=== PATIENT | female | born 1990 | race African-American/Black ===

== ENCOUNTER 2016-12-22 19:42 | Inpatient (IN) ==
[2016-12-22] MEDS ORDERED: ONDANSETRON 4 MG/2 ML VIAL IV PRN (20:41)
[2016-12-22] MEDS ORDERED: CITRIC ACID/SODIUM CITRATE 30 ML UDCUP PO ONE (20:45)
[2016-12-22] MEDS ORDERED: ceFAZolin 1,000 MG in SYRINGE 1 EACH IV ONE (20:45)
[2016-12-22 21:22] LABS: Basophils % 0.2 % (0.0-0.8); Hematocrit 33.5 VOL% (35.7-47.0); Hemoglobin 11.1 GM/DL (12.0-16.0); Immature Granulocytes % 0.6 %; Immature Granulocytes Absolute 0.03 #; Lymphocytes # 1.1 10*3/uL (1.4-4.0); Lymphocytes % 22.8 % (21.3-54.2); Mean Corpuscular HGB Conc 33.1 GM/DL (32-36); Mean Corpuscular Hemoglobin 26 PG (27-34); Mean Corpuscular Volume 78.8 FL (87-102); Mean Platelet Volume 12.9 FL (9.6-12.0); Monocytes # 0.5 10*3/uL (0.11-0.8); Monocytes % 10.3 % (1.7-12.7); Neutrophils # 3.3 10*3/uL (1.4-7.4); Neutrophils % 66.1 % (38.7-73.9); Platelet Count 155 T/CUMM (130-400); Red Blood Count 4.25 MC/CUMM (3.8-5.5); Red Cell Distribution Width 14.6 % (9.3-17.3)
[2016-12-22 21:36] LABS: INR 0.9; PT Patient Result 9.4 SECS; Partial Thromboplastin Time 27.8 SECS (0-40)
[2016-12-22 21:51] LABS: Albumin 2.3 G/DL (3.4-5.0); Bilirubin,Total 0.4 MG/DL (0.2-1.0); Calcium 8.6 MG/DL (8.5-10.1); Osmolality,Calculated 275.7 MOS/KG (273-304); Potassium 3.8 MMOL/L (3.5-5.1); Total Protein 6.8 G/DL (6.4-8.3); Uric Acid 4.5 MG/DL (2.6-6.0)
[2016-12-22 23:06] LABS: Apearance,Urine Slightly Hazy (Clear); Bacteria,Urine Occasional /HPF (Few); Bilirubin,Urine Negative (Negative); Blood, Urine Negative (Negative); Glucose,Urine (UA) 50 mg/dL (Negative); Hyaline Casts,Urine 17 /LPF (0-3); Ketones,Urine Negative (Negative); Mucus,Urine Moderate /LPF (Occasional); Nitrite,Urine Negative (Negative); Protein,Urine >=500 MG/DL; RBC,Urine 3 /HPF (0-4); Squamous Epithelial Cell,Urine Occasional /HPF (0-10); Urine Color Yellow (Yellow); Urine Specific Gravity 1.026 (1.001-1.035); WBC,Urine 4 /HPF (0-6)
[2016-12-22] MEDS ORDERED: DEXTROSE 50% 25 GM/50 ML VIAL IV PRN (23:07)
[2016-12-22] MEDS ORDERED: GLUCAGON 1 MG VIAL IM PRN (23:07)
[2016-12-23] MEDS: hydrALAZINE 20 MG/1 ML VIAL IV PRN ×2 (00:20)
[2016-12-23] MEDS: INSULIN REGULAR 100 UNIT/ML SUBCUT SCH ×4 (00:47→17:51)
[2016-12-23] MEDS ORDERED: METHYLDOPA 250 MG TABLET ONE (04:49)
[2016-12-23] MEDS ORDERED: CITRIC ACID/SODIUM CITRATE 30 ML UDCUP ONE (05:23)
[2016-12-23] MEDS ORDERED: OXYTOCIN/LR 30 UNIT/1,000 ML BAG IV ONE ×2 (07:30→09:16)
[2016-12-23] MEDS ORDERED: CLINDAMYCIN INJ 900 MG in PREMIX 1 EACH IV ONE (07:30)
[2016-12-23] MEDS ORDERED: BETAMETH SODIUM PHOS/ACETATE 30 MG/5 ML VIAL ONE (08:27)
[2016-12-23] MEDS ORDERED: BETAMETH SODIUM PHOS/ACETATE 30 MG/5 ML VIAL IM ONE (08:30)
[2016-12-23] MEDS ORDERED: CLINDAMYCIN INJ 50 ML IV ONE (09:15)
[2016-12-23] MEDS ORDERED: OXYTOCIN 10 UNIT/ML VIAL ONE (09:16)
[2016-12-23] MEDS ORDERED: ONDANSETRON 4 MG/2 ML VIAL ONE (09:20)
[2016-12-23] MEDS ORDERED: PHENYLEPHRINE 1 MG/10 ML SYRINGE IV ONE (09:20)
[2016-12-23] MEDS ORDERED: FUROSEMIDE 20 MG/2 ML VIAL ONE (09:20)
[2016-12-23] MEDS ORDERED: FUROSEMIDE 40 MG/4 ML VIAL ONE (10:34)
[2016-12-23] MEDS ORDERED: MORPHINE 10 MG/10 ML VIAL ONE (10:35)
[2016-12-23 10:41] LABS: Cord Arterial Blood HCO3 17.8 MMOL/L
[2016-12-23 10:44] LABS: Cord Venous Blood HCO3 19.4 MMOL/L; Cord Venous Blood PCO2 53.5 MMHG; Cord Venous Blood PO2 23.1
[2016-12-23 11:49] LABS: Apearance,Urine CLEAR (Clear); Bacteria,Urine Occasional /HPF (Few); Bilirubin,Urine Negative (Negative); Blood, Urine Negative (Negative); Glucose,Urine (UA) Negative (Negative); Ketones,Urine 20 mg/dL (Negative); Mucus,Urine Occasional /LPF (Occasional); Nitrite,Urine Negative (Negative); Protein,Urine 100 MG/DL; RBC,Urine 1 /HPF (0-4); Squamous Epithelial Cell,Urine Occasional /HPF (0-10); Urine Color Straw (Yellow); Urine Specific Gravity 1.005 (1.001-1.035); Urine Urobilinogen < 2.0 EU/DL (0.2-1.0); WBC,Urine 1 /HPF (0-6)
[2016-12-23] MEDS: FAMOTIDINE 20 MG/2 ML VIAL IV SCH ×3 (12:10→20:53)
[2016-12-23] MEDS: LACTATED RINGERS 1,000 ML IV SCH ×3 (12:15→22:51)
[2016-12-23] MEDS: METHYLDOPA 500 MG TABLET PO SCH ×2 (12:17→12:18)
[2016-12-23] MEDS ORDERED: OXYTOCIN/LR 20 UNIT/1,000 ML BAG IV ONE (13:29)
[2016-12-23] MEDS ORDERED: ACETAMINOPHEN 325 MG TABLET PO PRN (13:29)
[2016-12-23] MEDS ORDERED: LACTATED RINGERS 1,000 ML IV SCH (13:30)
[2016-12-23] MEDS: FUROSEMIDE 40 MG/4 ML VIAL IV SCH ×2 (15:44→22:54)
[2016-12-23] MEDS: CLINDAMYCIN INJ 900 MG in PREMIX 1 EACH IV SCH (18:12)
[2016-12-23 18:21] LABS: Basophils % 0.1 % (0.0-0.8); Hemoglobin 12.4 GM/DL (12.0-16.0); Immature Granulocytes % 0.5 %; Immature Granulocytes Absolute 0.06 #; Lymphocytes # 0.7 10*3/uL (1.4-4.0); Lymphocytes % 5.7 % (21.3-54.2); Mean Corpuscular HGB Conc 33.5 GM/DL (32-36); Mean Corpuscular Hemoglobin 26 PG (27-34); Mean Corpuscular Volume 78.6 FL (87-102); Mean Platelet Volume 13.1 FL (9.6-12.0); Monocytes # 0.6 10*3/uL (0.11-0.8); Monocytes % 5.2 % (1.7-12.7); Neutrophils # 10.2 10*3/uL (1.4-7.4); Neutrophils % 88.5 % (38.7-73.9); Platelet Count 174 T/CUMM (130-400); Red Blood Count 4.71 MC/CUMM (3.8-5.5); Red Cell Distribution Width 14.6 % (9.3-17.3); White Blood Count 11.5 T/CUMM (4-12)
[2016-12-23] MEDS ORDERED: diphenhydrAMINE 50 MG/1 ML VIAL IV PRN (20:31)
[2016-12-23] MEDS: DOCUSATE SODIUM 100 MG CAPSULE PO SCH (20:51)
[2016-12-24] MEDS ORDERED: diphenhydrAMINE 50 MG/1 ML VIAL IV SCH
[2016-12-24] MEDS: CLINDAMYCIN INJ 900 MG in PREMIX 1 EACH IV SCH (01:06)
[2016-12-24] MEDS: INSULIN REGULAR 100 UNIT/ML SUBCUT SCH ×5 (01:11→21:48)
[2016-12-24 04:58] LABS: Basophils % 0.1 % (0.0-0.8); Hematocrit 32.9 VOL% (35.7-47.0); Hemoglobin 10.9 GM/DL (12.0-16.0); Immature Granulocytes % 0.4 %; Immature Granulocytes Absolute 0.06 #; Lymphocytes # 0.9 10*3/uL (1.4-4.0); Lymphocytes % 6.6 % (21.3-54.2); Mean Corpuscular HGB Conc 33.1 GM/DL (32-36); Mean Corpuscular Hemoglobin 26 PG (27-34); Mean Corpuscular Volume 78.7 FL (87-102); Mean Platelet Volume 12.4 FL (9.6-12.0); Monocytes # 1.1 10*3/uL (0.11-0.8); Monocytes % 7.8 % (1.7-12.7); Neutrophils # 11.6 10*3/uL (1.4-7.4); Neutrophils % 85.1 % (38.7-73.9); Platelet Count 176 T/CUMM (130-400); Red Blood Count 4.18 MC/CUMM (3.8-5.5); Red Cell Distribution Width 14.4 % (9.3-17.3); White Blood Count 13.7 T/CUMM (4-12)
[2016-12-24] MEDS ORDERED: hydrOXYzine HCL 25 MG/1 ML VIAL IM PRN (06:01)
[2016-12-24] MEDS: DOCUSATE SODIUM 100 MG CAPSULE PO SCH ×2 (09:17→20:05)
[2016-12-24] MEDS: METOCLOPRAMIDE 10 MG/2 ML VIAL IV SCH ×2 (09:17→17:06)
[2016-12-24] MEDS: MULTIVITAMIN (PRENATAL) TABLET PO SCH (09:17)
[2016-12-24] MEDS: FAMOTIDINE 20 MG/2 ML VIAL IV SCH ×2 (09:18→21:25)
[2016-12-24] MEDS: FERROUS SULFATE 325 MG TABLET PO SCH ×2 (14:23→21:25)
[2016-12-24] MEDS ORDERED: INSULIN REGULAR 100 UNIT/ML SUBCUT SCH (19:30)
[2016-12-24] MEDS: MAGNESIUM HYDROXIDE SUSP 30 ML UDCUP PO PRN (20:05)
[2016-12-24] MEDS: SIMETHICONE CHEW 80 MG TABLET PO PRN (20:05)
[2016-12-24] MEDS: FLUTICASONE 50 MCG NASAL SPRAY 16 GM BOTTLE BOTH NARES SCH (21:25)
[2016-12-25] MEDS: BISACODYL 10 MG SUPP RECTAL PRN (00:04)
[2016-12-25] MEDS: diphenhydrAMINE CAP 25 MG CAPSULE PO PRN ×2 (00:12→05:53)
[2016-12-25] MEDS ORDERED: oxyCODONE/ACETAMINOPHEN 5-325 MG TABLET PO PRN ×2 (01:50)
[2016-12-25] MEDS: IBUPROFEN 800 MG TABLET PO PRN (04:28)
[2016-12-25] MEDS: INSULIN REGULAR 100 UNIT/ML SUBCUT SCH ×4 (07:25→21:50)
[2016-12-25] MEDS: MULTIVITAMIN (PRENATAL) TABLET PO SCH (09:28)
[2016-12-25] MEDS: FERROUS SULFATE 325 MG TABLET PO SCH ×2 (09:29→21:39)
[2016-12-25] MEDS: DOCUSATE SODIUM 100 MG CAPSULE PO SCH ×2 (09:29→21:39)
[2016-12-25] MEDS: FAMOTIDINE 20 MG/2 ML VIAL IV SCH ×2 (09:29→21:40)
[2016-12-25] MEDS: FLUTICASONE 50 MCG NASAL SPRAY 16 GM BOTTLE BOTH NARES SCH ×2 (09:33→21:39)
[2016-12-25] MEDS ORDERED: METHYLDOPA 250 MG TABLET PO SCH (14:30)
[2016-12-25] MEDS: METHYLDOPA 250 MG TABLET PO SCH (21:39)
[2016-12-25] MEDS: SIMETHICONE CHEW 80 MG TABLET PO PRN (23:52)
[2016-12-26] MEDS: IBUPROFEN 800 MG TABLET PO PRN ×2 (05:10→15:00)
[2016-12-26] MEDS ORDERED: guaiFENesin 200 MG/10 ML UDCUP PO PRN (05:15)
[2016-12-26] MEDS: METHYLDOPA 250 MG TABLET PO SCH ×2 (05:30→14:59)
[2016-12-26] MEDS: DOCUSATE SODIUM 100 MG CAPSULE PO SCH ×2 (09:20→20:41)
[2016-12-26] MEDS: MAGNESIUM HYDROXIDE SUSP 30 ML UDCUP PO PRN (09:22)
[2016-12-26] MEDS: METOCLOPRAMIDE 10 MG TABLET PO SCH ×2 (09:22→15:00)
[2016-12-26] MEDS: FERROUS SULFATE 325 MG TABLET PO SCH ×2 (09:24→20:41)
[2016-12-26] MEDS: FLUTICASONE 50 MCG NASAL SPRAY 16 GM BOTTLE BOTH NARES SCH (09:24)
[2016-12-26] MEDS: MULTIVITAMIN (PRENATAL) TABLET PO SCH (09:26)
[2016-12-26] MEDS: BISACODYL 10 MG SUPP RECTAL PRN (14:59)
[2016-12-26 16:51] VITALS: BP 154/99
== END 2016-12-26 22:00 | disposition home or self-care (01) | DRG 766 ==
LOC: N.LD 19:42 → N.OB 12-23 13:48
PROVIDERS: ADMIT Obstetrics & Gynecology; ATTEND Obstetrics & Gynecology